=== PATIENT | female | born 1965 | race Caucasian/White ===

== ENCOUNTER → 2021-08-12 12:41 | Outpatient (BNVA) | payer MEDICARE, MEDICAID, SELFPAY | PROVIDERS: PCP Internal Medicine; Visit Provider Psychiatry & Neurology Neurology | DX: F03.90 Unspecified dementia, unspecified severity, without behavioral disturbance, psychotic disturbance, mood disturbance, and anxiety (principal); F48.9 Nonpsychotic mental disorder, unspecified; F69 Unspecified disorder of adult personality and behavior; R25.1 Tremor, unspecified; G47.9 Sleep disorder, unspecified | CPT/HCPCS: Q3014 ==

== ENCOUNTER → 2021-11-23 07:53 | Outpatient (BNVA) | payer MEDICARE, MEDICAID, SELFPAY | PROVIDERS: PCP Internal Medicine; Visit Provider Psychiatry & Neurology Neurology | DX: F03.90 Unspecified dementia, unspecified severity, without behavioral disturbance, psychotic disturbance, mood disturbance, and anxiety (principal); R25.1 Tremor, unspecified; Z79.899 Other long term (current) drug therapy | CPT/HCPCS: 99212 ==

== ENCOUNTER → 2022-11-23 09:28 | Outpatient (BNVA) | payer MEDICARE, MEDICAID, SELFPAY | PROVIDERS: PCP Internal Medicine; Visit Provider Psychiatry & Neurology Neurology | DX: R25.1 Tremor, unspecified (principal); G25.0 Essential tremor; G25.2 Other specified forms of tremor; F03.90 Unspecified dementia, unspecified severity, without behavioral disturbance, psychotic disturbance, mood disturbance, and anxiety | CPT/HCPCS: 99212 ==

== ENCOUNTER 2023-03-29 10:30 | Outpatient (AMB) | payer MEDICARE, MEDICAID, SELFPAY ==
--- NOTE | 2023-03-29 10:32 | A.OFFVIS_ITS ---
Intake Vital Signs 03/29/23 10:33 Height 4 ft 10 in Weight 163 lb BMI 34.1 BP 104/62 Blood Pressure Location Rt brachial Position Sitting Pulse 73 Pulse Source Pulse Oximeter Pulse Oximetry (%) 96 Oxygen Delivery Method Room Air Intake Visit Reasons: 4 Follow up Memory/Tremors-lvm Intake Note: Pt presents to the office today with her healthcare worker. Pts worker states that everything is the same and there are no worsening symptoms. Allergies No Known Allergies Allergy (Verified 03/29/23 10:35) Medication List - Last Reconciled 03/29/23 by Gaby Andres MD acetaminophen 650 mg PO Q4H PRN bacitracin zinc (Antibiotic (bacitracin zinc)) 1 appl topical .prn calcium-vitamin D3-vitamin K 500-100-40 mg-unit-mcg 1 tab PO DAILY carbamazepine 200 mg PO TID cetirizine 10 mg PO DAILY PRN cholecalciferol (vitamin D3) 50 mcg PO DAILY donepezil 10 mg PO DAILY fluoxetine 20 mg PO TID fluticasone propionate 50 mcg/actuation (Allergy Relief (fluticasone)) 1 spray intranasal DAILY gabapentin 1,200 mg PO BEDTIME gabapentin 300 mg PO BEDTIME guaifenesin 200 mg PO Q4H lorazepam 1 mg PO BEDTIME PRN memantine 10 mg PO BID primidone 250 mg PO TID trazodone 100 mg PO BEDTIME PRN zonisamide 25 mg PO BID HPI HPI Comments History of Present Illness Details 57y/o female with mental retardation, be havioral disorder,tremors comes for follow up. Her healthcare applications analyst helps with history.No change in cognition, behavior and tremors. she needs help with feeding due to tremors.she is independent in many ADLs. she has hallucinations mainly in the later part of the day- sees people but does not bother her. [facility] Medical History Essential and other specified forms of tremor Sleep disorder Tremors of nervous system Dementia Mental and behavioral problem Surgical History No pertinent past surgical history Social History Alcohol intake: never Patient Tobacco Use Status: Never used Tobacco Physical Exam Vital Signs: Last Vital Signs Pulse 73 03/29/23 10:33 BP 104/62 03/29/23 10:33 Pulse Ox 96 03/29/23 10:33 Oxygen Delivery Method Room Air 03/29/23 10:33 BMI result Body Mass Index 34.1 Const Orientation/consciousness: oriented to person Neuro Other: Awake Follows simple commands speech- dysarthria Moderate to severe cary UE and head tremors at rest, posture and action gait- high steppage gait , mild wide based General: oriented to person Assessment & Plan Assessment & Plan (1) Dementia: Code(s): F03.90 - Unspecified dementia, unspecified severity, without behavioral disturbance, psychotic disturbance, mood disturbance, and anxiety (2) Tremors of nervous system: Code(s): R25.1 - Tremor, unspecified (3) Essential and other specified forms of tremor: Code(s): G25.0 - Essential tremor; G25.2 - Other specified forms of tremor Plan Continue primidone 250mg tid Donepezil 10mg qd namenda 10mg bid I will trial her on Zonisamide 25mg bid she will be a good candidate for CALATAPS therapy for her poory controlled tremors Medications: New zonisamide 25 mg PO BID 60 caps 6RF Coding Level of Care Code Est Pt Level 4 (75365) Diagnoses Dementia F03.90 Tremors of nervous system R25.1 Essential and other specified forms of tremor G25.0; G25.2
[2023-03-29 10:33] VITALS: BP 104/62; PULSE 73; O2SAT 96; BMI 34.1
== END 2023-03-29 10:53 | disposition home or self-care (01) ==
PROVIDERS: PCP Internal Medicine; Visit Provider Psychiatry & Neurology Neurology
DX: F03.90 Unspecified dementia, unspecified severity, without behavioral disturbance, psychotic disturbance, mood disturbance, and anxiety (principal); G25.0 Essential tremor; G25.2 Other specified forms of tremor
CPT/HCPCS: 99214

== ENCOUNTER → 2023-03-29 10:30 | Outpatient (BNVA) | payer MEDICARE, MEDICAID, SELFPAY | PROVIDERS: PCP Internal Medicine; Visit Provider Psychiatry & Neurology Neurology | DX: F03.90 Unspecified dementia, unspecified severity, without behavioral disturbance, psychotic disturbance, mood disturbance, and anxiety (principal); G25.0 Essential tremor; G25.2 Other specified forms of tremor; Z79.899 Other long term (current) drug therapy | CPT/HCPCS: 99212 ==

== ENCOUNTER 2023-07-02 10:45 | Outpatient (AMB) | payer MEDICARE, MEDICAID, SELFPAY ==
--- NOTE | 2023-07-02 10:59 | MHC.OFFVIS ---
Intake Vital Signs 07/02/23 11:02 Height 4 ft 10 in Weight 170 lb BMI 35.5 BP 122/80 Blood Pressure Location Rt brachial Position Sitting Respiration 16 Pulse 80 Pulse Source Pulse Oximeter Pulse Oximetry (%) 96 Oxygen Delivery Method Room Air Intake Visit Reasons: 3 mo f/u - Memory/Tremors - LVM Intake Note: Pt presents to the office for a 3 month follow up for memory loss and tremors. Director Appointment Required: No Allergies No Known Allergies Allergy (Verified 07/02/23 11:00) HPI HPI Comments History of Present Illness Details 58y/o female with mental retardation, behavioral disorder,tremors comes for follow up. Zonisamide helps her tremors. Mild decrease Her hospice home care coordinator helps with history.No change in cognition, behavior and tremors. she needs help with feeding due to tremors.she is independent in many ADLs. she has hallucinations mainly in the later part of the day- sees people but does not bother her. [facility] Medical History Essential and other specified forms of tremor Sleep disorder Tremors of nervous system Dementia Mental and behavioral problem Surgical History No pertinent past surgical history Social History Alcohol intake: never Patient Tobacco Use Status: Never used Tobacco Physical Exam Vital Signs: Last Vital Signs Pulse 80 07/02/23 11:02 Resp 16 07/02/23 11:02 BP 122/80 07/02/23 11:02 Pulse Ox 96 07/02/23 11:02 Oxygen Delivery Method Room Air 07/02/23 11:02 BMI result Body Mass Index 35.5 Const Orientation/consciousness: oriented to person Neuro Other: Awake Follows simple commands speech- dysarthria Mild to moderate cary UE and head tremors at rest, posture and action gait- high steppage gait , mild wide based General: oriented to person Assessment & Plan Assessment & Plan (1) Dementia: Code(s): F03.90 - Unspecified dementia, unspecified severity, without behavioral disturbance, psychotic disturbance, mood disturbance, and anxiety (2) Tremors of nervous system: Code(s): R25.1 - Tremor, unspecified (3) Essential and other specified forms of tremor: Code(s): G25.0 - Essential tremor; G25.2 - Other specified forms of tremor Plan Continue primidone 250mg tid Donepezil 10mg qd namenda 10mg bid Increase Zonisamide 50mg bid she will be a good candidate for CALATAPS therapy for her poory controlled tremors Medications: Changed From zonisamide 25 mg PO BID 60 caps 6RF To zonisamide 50 mg PO BID 60 caps 6RF Coding Level of Care Code Est Pt Level 4 (88477) Diagnoses Dementia F03.90 Tremors of nervous system R25.1 Essential and other specified forms of tremor G25.0; G25.2
[2023-07-02 11:02] VITALS: BP 122/80; PULSE 80; RESP 16; O2SAT 96; BMI 35.5
== END 2023-07-02 11:34 | disposition home or self-care (01) ==
PROVIDERS: PCP Internal Medicine; Visit Provider Psychiatry & Neurology Neurology
DX: F03.918 Unspecified dementia, unspecified severity, with other behavioral disturbance (principal); G25.0 Essential tremor; G25.2 Other specified forms of tremor
CPT/HCPCS: 99214

== ENCOUNTER → 2023-07-02 10:45 | Outpatient (BNVA) | payer MEDICARE, MEDICAID, SELFPAY | PROVIDERS: PCP Internal Medicine; Visit Provider Psychiatry & Neurology Neurology | DX: F03.90 Unspecified dementia, unspecified severity, without behavioral disturbance, psychotic disturbance, mood disturbance, and anxiety (principal); R25.1 Tremor, unspecified; G25.0 Essential tremor; G25.2 Other specified forms of tremor | CPT/HCPCS: 99212 ==

== ENCOUNTER 2024-01-01 08:50 | Outpatient (AMB) | payer MEDICARE, MEDICAID, SELFPAY ==
--- NOTE | 2024-01-01 09:10 | A.OFFVIS_ITS ---
Vital Signs 01/01/24 09:11 Height 4 ft 10 in Weight 172 lb 8 oz BMI 36.0 BP 112/64 Blood Pressure Location Rt brachial Position Sitting Respiration 16 Pulse 65 Pulse Source Pulse Oximeter Pulse Oximetry (%) 95 Oxygen Delivery Method Room Air Intake Visit Reasons: 6M follow up - Confirmed Intake Note: Pt presents to the office for a 6 month follow up for dementia. Shared Services Manager Required: No Allergies No Known Allergies Allergy (Verified 01/01/24 09:11) HPI Comments Details: 58y/o female with mental retardation, behavioral disorder,tremors comes for follow up. Zonisamide helps her tremors. Mild decrease Her healthcare network consultant helps with history.No change in cognition, behavior and tremors. she needs help with feeding due to tremors.she is independent in many ADLs. she has hallucinations mainly in the later part of the day- sees people but does not bother her. [facility] Medical History Essential and other specified forms of tremor Sleep disorder Tremors of nervous system Dementia Mental and behavioral problem Surgical History No pertinent past surgical history Social History Alcohol intake: never Patient Tobacco Use Status: Never used Tobacco Physical Exam Vital Signs: Last Vital Signs Pulse 65 01/01/24 09:11 Resp 16 01/01/24 09:11 BP 112/64 01/01/24 09:11 Pulse Ox 95 01/01/24 09:11 Oxygen Delivery Method Room Air 01/01/24 09:11 BMI result Body Mass Index 36.0 Const Orientation/consciousness: oriented to person Neuro Other: Awake Follows simple commands speech- dysarthria Mild to moderate cary UE and head tremors at rest, posture and action gait- high steppage gait , mild wide based General: oriented to person Assessment & Plan Assessment & Plan (1) Dementia: Code(s): F03.90 - Unspecified dementia, unspecified severity, without behavioral dist urbance, psychotic disturbance, mood disturbance, and anxiety Category: Medical (2) Tremors of nervous system: Code(s): R25.1 - Tremor, unspecified Category: Medical (3) Essential and other specified forms of tremor: Code(s): G25.0 - Essential tremor; G25.2 - Other specified forms of tremor Category: Medical Plan Continue primidone 250mg tid Donepezil 10mg qd namenda 10mg bid Increase Zonisamide 100mg bid labs- CBC CMP she will be a good candidate for CALATAPS therapy for her poory controlled tremors Orders: Orders Comprehensive Met. Panel Today F03.90 - Unspecified dementia, unspecified severity, without behavioral disturbance, psychotic disturbance, mood disturbance, and anxiety, G25.0 - Essential tremor, G25.2 - Other specified forms of tremor Complete Blood Count Auto Diff Today F03.90 - Unspecified dementia, unspecified severity, without behavioral disturbance, psychotic disturbance, mood disturbance, and anxiety, G25.0 - Essential tremor, G25.2 - Other specified forms of tremor Medications: Changed From zonisamide 50 mg PO BID 60 caps 6RF To zonisamide 100 mg PO BID 60 caps 6RF Coding Level of Care Code Est Pt Level 4 (11770) Diagnoses Dementia F03.90 Tremors of nervous system R25.1 Essential and other specified forms of tremor G25.0; G25.2
[2024-01-01 09:11] VITALS: BP 112/64; PULSE 65; RESP 16; O2SAT 95; BMI 36.0
== END 2024-01-01 09:40 | disposition home or self-care (01) ==
PROVIDERS: PCP Internal Medicine; Visit Provider Psychiatry & Neurology Neurology
DX: F03.90 Unspecified dementia, unspecified severity, without behavioral disturbance, psychotic disturbance, mood disturbance, and anxiety (principal); G25.0 Essential tremor; G25.2 Other specified forms of tremor
CPT/HCPCS: 99214

== ENCOUNTER → 2024-01-01 08:50 | Outpatient (BNVA) | payer MEDICARE, MEDICAID, SELFPAY | PROVIDERS: PCP Internal Medicine; Visit Provider Psychiatry & Neurology Neurology | DX: F03.90 Unspecified dementia, unspecified severity, without behavioral disturbance, psychotic disturbance, mood disturbance, and anxiety (principal); G25.0 Essential tremor | CPT/HCPCS: 99212 ==

== ENCOUNTER 2024-01-01 09:48 | Outpatient (REF) | payer MEDICARE, MEDICAID, SELFPAY ==
[2024-01-01 17:26] LABS: MANUAL DIFF FLAG NO
[2024-01-01 17:40] LABS: Basophils Absolute Auto 0.1 X10*3/uL (0.0-0.2); Basophils Percent Auto 1.8 % (0-2); Eosinophils Absolute Auto 0.2 X10*3/uL (0.0-0.4); Eosinophils Percent Auto 3.9 % (0-4); Hematocrit 38.9 % (37.0-47.0); Hemoglobin 12.5 g/dl (12.0-16.0); Imm Gran Abs Auto 0.01 X10*3/uL (0.00-0.03); Imm Gran Pct Auto 0.2 % (0.0-0.4); Lymphocytes Absolute Auto 1.6 X10*3/uL (1.2-4.9); Lymphocytes Percent Auto 35.9 % (20-40); Mean Corpuscular HGB Conc 32.1 g/dl (31.0-35.0); Mean Corpuscular Hemoglobin 29.9 pg (27.0-33.0); Mean Corpuscular Volume 93.1 fL (80.0-98.0); Mean Platelet Volume 9.6 fL (9.4-12.3); Monocytes Absolute Auto 0.7 X10*3/uL (0.1-1.2); Monocytes Percent Auto 16.7 % (2-11); Neutrophils Absolute Auto 1.8 x10*3/uL (2.0-8.3); Neutrophils Percent Auto 41.5 % (45-73); Platelet Count 263 X10*3/uL (160-400); Red Blood Count 4.18 X10*6/uL (4.20-5.50); Red Cell Distribution Width 14.5 % (11.0-16.0); White Blood Count 4.4 X10*3/uL (4.8-10.8)
[2024-01-01 17:44] LABS: Alanine Aminotransferase 18 U/L (0-31); Alkaline Phosphatase 170 U/L (39-117); Anion Gap 12 (12-20); Aspartate Amino Transferase 21 U/L (5-31); Bilirubin Total 0.2 mg/dL (0.0-1.0); Blood Urea Nitrogen 15 mg/dL (9-16); Calcium 9.1 mg/dL (8.4-10.2); Carbon Dioxide 24 mmol/L (22-29); Chloride 105 mmol/L (96-108); Estimated Glomerular Filt Rate > 60; Glucose Random 79 mg/dL (60-115); Potassium 4.3 mmol/L (3.3-5.1); Sodium 137 mmol/L (135-145); Total Protein 7.6 g/dL (6.5-8.0)
== END 2024-01-01 09:49 | disposition home or self-care (01) ==
LOC: HO.HKASLDS 09:48
PROVIDERS: Visit Provider Psychiatry & Neurology Neurology
DX: G25.0 Essential tremor (principal); G25.2 Other specified forms of tremor; F03.90 Unspecified dementia, unspecified severity, without behavioral disturbance, psychotic disturbance, mood disturbance, and anxiety
CPT/HCPCS: 36415; 80053; 85025

== ENCOUNTER 2024-03-24 10:53 | Outpatient (AMB) | payer MEDICARE, MEDICAID, SELFPAY ==
[2024-03-24 10:56] VITALS: BP 126/70; PULSE 81; O2SAT 94; BMI 35.9
--- NOTE | 2024-03-24 10:56 | A.OFFVIS_ITS ---
Vital Signs 03/24/24 10:56 Height 4 ft 10 in Weight 172 lb BMI 35.9 BP 126/70 Blood Pressure Location Rt brachial Position Sitting Pulse 81 Pulse Source Pulse Oximeter Pulse Oximetry (%) 94 Oxygen Delivery Method Room Air Intake Visit Reasons: Follow up Diesel Engine Ii Pipe Fitter Required: No Accompanied by: Health Development Officer Allergies No Known Allergies Allergy (Verified 03/24/24 10:59) HPI Comments Details: 58y/o female with mental retardation, behavioral disorder,tremors comes for follow up. Tremors have increased. Her gait is worse with increased balance problems. Her care specialist helps with history.No change in cognition, behavior and tremors. she needs help with feeding due to tremors.she is independent in many ADLs. she has hallucinations mainly in the later part of the day- sees people but does not bother her. [facility] Medical History Essential and other specified forms of tremor Sleep disorder Tremors of nervous system Dementia Mental and behavioral problem Surgical History No pertinent past surgical history Social History Alcohol intake: never Patient Tobacco Use Status: Never used Tobacco Physical Exam Vital Signs: Last Vital Signs Pulse 81 03/24/24 10:56 BP 126/70 03/24/24 10:56 Pulse Ox 94 03/24/24 10:56 Oxygen Delivery Method Room Air 03/24/24 10:56 BMI result Body Mass Index 35.9 Const Orientation/consciousness: oriented to person Neuro Other: Awake Follows simple commands speech- dysarthria Moderate cary UE and head tremors at rest, posture and action gait- high steppage gait , mild wide based General: oriented to person Assessment & Plan Assessment & Plan (1) Dementia: Code(s): F03.90 - Unspecified dementia, unspecified severity, without behavioral disturbance, psychotic disturbance, mood disturbance, and anxiety Category: Medical (2) Tremors of nervous system: Code(s): R25.1 - Tremor, unspecified Category: Medical (3) Essential and other specified forms of tremor: Code(s): G25.0 - Essential tremor; G25.2 - Other specified forms of tremor Category: Medical Plan Continue primidone 250mg tid Donepezil 10mg qd namenda 10mg bid Increase Zonisamide 200mg bid she will be a good candidate for CALATAPS therapy for her poory controlled tremors Medications: Changed From zonisamide 100 mg PO BID 60 caps 6RF To zonisamide 200 mg (2 x 100 mg) PO BID 120 caps 6RF Coding Level of Care Code Est Pt Level 4 (97948) Complex EM visit Add On G2211 Diagnoses Dementia F03.90 Tremors of nervous system R25.1 Essential and other specified forms of tremor G25.0; G25.2
== END 2024-03-24 11:13 | disposition home or self-care (01) ==
PROVIDERS: PCP Internal Medicine; Visit Provider Psychiatry & Neurology Neurology
DX: F03.90 Unspecified dementia, unspecified severity, without behavioral disturbance, psychotic disturbance, mood disturbance, and anxiety (principal); G25.0 Essential tremor; G25.2 Other specified forms of tremor
CPT/HCPCS: 99214; G2211

== ENCOUNTER → 2024-03-24 10:53 | Outpatient (BNVA) | payer MEDICARE, MEDICAID, SELFPAY | PROVIDERS: PCP Internal Medicine; Visit Provider Psychiatry & Neurology Neurology | DX: G25.0 Essential tremor (principal); G25.2 Other specified forms of tremor; F79 Unspecified intellectual disabilities | CPT/HCPCS: 99212 ==

== ENCOUNTER 2025-02-04 10:07 | Outpatient (AMB) | payer MEDICARE, MEDICAID, SELFPAY ==
--- NOTE | 2025-02-04 10:09 | MHC.OFFVIS ---
Vital Signs 02/04/25 10:10 Height 4 ft 10 in Weight 165 lb 6 oz BMI 34.6 BP 122/68 Pulse 83 Pulse Source Pulse Oximeter Pulse Oximetry (%) 95 Oxygen Delivery Method Room Air Intake Visit Reasons: follow up Intake Note: Follow up Dementia Banquet Director Required: No Accompanied by: Apparatus Engineering Technologist Allergies No Known Allergies Allergy (Verified 02/04/25 10:10) Medication List - Last Reconciled 02/04/25 by Gaby Andres MD acetaminophen 650 mg PO Q4H PRN albuterol sulfate 90 mcg/actuation 2 puffs inhalation Q6H PRN bacitracin zinc (Antibiotic (bacitracin zinc)) 1 appl topical .prn calcium-vitamin D3-vitamin K 500 mg-100 unit -40 mcg 1 tab PO DAILY carbamazepine mg PO TID cetirizine 10 mg PO DAILY PRN cholecalciferol (vitamin D3) 50 mcg PO DAILY donepezil 10 mg PO QAM fluoxetine 20 mg PO TID fluticasone propionate 50 mcg/actuation (Allergy Relief (fluticasone)) 1 spray intranasal DAILY gabapentin 600 mg PO BEDTIME guaifenesin 200 mg PO Q4H lorazepam 1 mg PO BEDTIME PRN lorazepam (Ativan) 1 mg PO DAILY PRN memantine 10 mg PO BID primidone 250 mg PO TID 28 days trazodone 100 mg PO BEDTIME PRN zonisamide 200 mg (2 x 100 mg) PO BID HPI Comments Details: 59y/o female with mental retardation, behavioral disorder,tremors comes for follow up. Tremors have increased. Her gait is worse with increased balance problems.Her cognition is worse- needs help with all her ADLs. she had 4 falls in the past 6 mths. she trips on herself usually and walks fast Her home child care provider helps with history. she has hallucinations all day now . The hallucinations does not bother her [facility] Medical History Essential and other specified forms of tremor Sleep disorder Tremors of nervous system Dementia Mental and behavioral problem Surgical History No pertinent past surgical history Social History Alcohol intake: never Patient Tobacco Use Status: Never used Tobacco Physical Exam Vital Signs: Last Vital Signs Pulse 83 02/04/25 10:10 BP 122/68 02/04/25 10:10 Pulse Ox 95 02/04/25 10:10 Oxygen Delivery Method Room Air 02/04/25 10:10 BMI result Body Mass Index 34.6 Const Orientation/consciousness: oriented to person Neuro Other: Awake Follows simple commands speech- dysarthria Moderate cary UE and head tremors at rest, posture and action gait- high steppage gait , mild wide based General: oriented to person Assessment & Plan Assessment & Plan (1) Dementia: Code(s): F03.90 - Unspecified dementia, unspecified severity, without behavioral disturbance, psychotic disturbance, mood disturbance, and anxiety Category: Medical (2) Tremors of nervous system: Code(s): R25.1 - Tremor, unspecified Category: Medical (3) Essential and other specified forms of tremor: Code(s): G25.0 - Essential tremor; G25.2 - Other specified forms of tremor Category: Medical Plan Continue primidone 250mg tid Donepezil 10mg qd namenda 10mg bid Zonisamide 200mg bid Coding Level of Care Code Est Pt Level 4 (21578) Complex EM visit Add On G2211 Diagnoses Dementia F03.90 Tremors of nervous system R25.1 Essential and other specified forms of tremor G25.0; G25.2
[2025-02-04 10:10] VITALS: BP 122/68; PULSE 83; O2SAT 95; BMI 34.6
== END 2025-02-04 10:55 | disposition home or self-care (01) ==
LOC: HO.HSMS 10:07
PROVIDERS: PCP Internal Medicine; Visit Provider Psychiatry & Neurology Neurology
DX: G25.2 Other specified forms of tremor (principal); F03.90 Unspecified dementia, unspecified severity, without behavioral disturbance, psychotic disturbance, mood disturbance, and anxiety
CPT/HCPCS: 99214; G2211

== ENCOUNTER → 2025-02-04 10:07 | Outpatient (BNVA) | payer MEDICARE, MEDICAID, SELFPAY | PROVIDERS: PCP Internal Medicine; Visit Provider Psychiatry & Neurology Neurology | DX: G25.2 Other specified forms of tremor (principal); G25.0 Essential tremor; F03.90 Unspecified dementia, unspecified severity, without behavioral disturbance, psychotic disturbance, mood disturbance, and anxiety | CPT/HCPCS: 99212 ==